=== PATIENT | male | born 1975 | race African-American/Black ===

== ENCOUNTER 2020-07-16 09:06 | Emergency (ER) | payer BC, SELFPAY ==
[2020-07-16 09:38] LABS: Absolute Lymphocytes (CBC) 1.7 K/uL (0.7-4.9); Basophils % 1.1 % (0-1.3); Hematocrit 35.3 % (39.6-49.0); MPV 6.8 fL (7.6-11.3); RBC Red Blood Cell Count 3.66 M/uL (4.33-5.43)
[2020-07-16 09:39] LABS: Protime INR 0.84
[2020-07-16 09:57] LABS: ALT/SGPT 27 U/L (12-78); AST/SGOT 15 U/L (15-37); Albumin 3.7 g/dL (3.4-5.0); Alkaline Phosphatase 79 U/L (45-117); BUN Blood Urea Nitrogen 11 mg/dL (7-18); Bicarbonate 27 mmol/L (21-32); Bilirubin Direct 0.2 mg/dL (0-0.2); Bilirubin Total 0.4 mg/dL (0.2-1.0); Glucose Level 209 mg/dL (74-106); Magnesium 2.2 mg/dL (1.8-2.4); NT PRO-BNP 38 pg/mL (<125); Protein, Total 8.2 g/dL (6.4-8.2); Sodium Level 141 mmol/L (136-145); Troponin (Emerg Dept Use Only) < 0.02 ng/mL (0.0-0.045)
--- NOTE | 2020-07-16 09:58 | RAD REPORT ---
EXAM DESCRIPTION: Kerri Single View07/16/2020 9:53 am CLINICAL HISTORY: Chest pain COMPARISON: 2017 FINDINGS: The lungs appear clear of acute infiltrate. The heart is normal size IMPRESSION: No acute abnormalities displayed
[2020-07-16] MEDS ORDERED: NA CHLORIDE 0.9% 1,000 ML ONE (10:23)
--- NOTE | 2020-07-16 13:23 | ER ---
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 Coronavirus screen: Client denies travel out of the [place] in the last 14 days. Ebola Screen: Patient negative for fever greater than or equal to 101.5 degrees Fahrenheit, and additional compatible Ebola Virus Disease symptoms Patient denies exposure to infectious person. Patient denies travel to an Ebola-affected area in the 21 days before illness onset. No symptoms or risks identified at this time. Initial Sepsis Screen: Does the patient meet any 2 criteria? HR > 90 bpm. No. Patient's initial sepsis screen is negative. Does the patient have a suspected source of infection? No. Patient's initial sepsis screen is negative. Risk Assessment: Do you want to hurt yourself or someone else? Patient reports no desire to harm self or others. Onset of symptoms was July 16, 2020 at 08:00. 09:04 Method Of Arrival: EMS: [facility] em 09:04 Acuity: LAMINE 2 em Historical: - Allergies: 09:04 No Known Allergies; em - PMHx: 09:04 Diabetes - NIDDM; Hypertension; em - PSHx: 09:04 None; em - Immunization history:: Adult Immunizations up to date. - Social history:: Smoking status: Patient reports the use of cigarette tobacco products, cigars. Screenin:04 Abuse screen: Denies threats or abuse. Nutritional screening: No deficits noted. em Tuberculosis screening: No symptoms or risk factors identified. Fall Risk None identified. Assessment: 09:04 General: Appears in no apparent distress. comfortable, Behavior is calm, cooperative, em appropriate for age. Pain: Denies pain. Complains of pain in anterior aspect of right upper chest Pain does not radiate. Pain began 0800. Neuro: Level of Consciousness is awake, alert, obeys commands, Oriented to person, place, time, situation, Appropriate for age. Cardiovascular: Capillary refill < 3 seconds Patient's skin is warm and dry. Rhythm is sinus rhythm. Respiratory: Airway is patent Respiratory effort is even, unlabored, Respiratory pattern is regular, symmetrical. GI: Patient currently denies nausea, vomiting. Derm: Skin is intact, is healthy with good turgor, Skin is pink, warm \T\ dry. Musculoskeletal: Capillary refill < 3 seconds, Range of motion: intact in all extremities. 10:15 Reassessment: Patient appears in no apparent distress at this time. Patient and/or em family updated on plan of care and expected duration. Pain level reassessed. Patient is alert, oriented x 3, equal unlabored respirations, skin warm/dry/pink. 10:58 Reassessment: Patient appears in no apparent distress at this time. Patient and/or em family updated on plan of care and expected duration. Pain level reassessed. will repeat trop. at 1230. 12:30 Reassessment: Patient appears in no apparent distress at this time. Patient and/or vg1 family updated on plan of care and expected duration. Pain level reassessed. Patient is alert, oriented x 3, equal unlabored respirations, skin warm/dry/pink. sent repeat trop. 13:38 Reassessment: Patient appears in no apparent distress at this time. Patient and/or em family updated on plan of care and expected duration. Pain level reassessed. Patient is alert, oriented x 3, equal unlabored respirations, skin warm/dry/pink. Vital Signs: 09:04 BP 164 / 93; Pulse 102; Resp 20; Temp 98.6(O); Pulse Ox 100% on R/A; Weight 83.91 kg; em Height 5 ft. 5 in. (165.10 cm); Pain 0/10; 10:22 BP 154 / 91; Pulse 91; Resp 18; Pulse Ox 100% on R/A; Pain 0/10; em 11:43 BP 156 / 90; Pulse 99; Resp 16; Pulse Ox 100% on R/A; vg1 12:30 BP 140 / 75; Pulse 91; Resp 18; Pulse Ox 100% on R/A; vg1 13:38 BP 138 / 71; Pulse 96; Resp 18; Pulse Ox 99% on R/A; em 09:04 Body Mass Index 30.79 (83.91 kg, 165.10 cm) em ED Course: 09:04 Arm band placed on. em 09:04 Patient has correct armband on for positive identification. park naturalist on. Pulse em ox on. NIBP on. 09:04 Patient maintains SpO2 saturation greater than 95% on room air. em 09:13 Patient arrived in ED. ss 09:13 Rodrigo Mcguire, RN is Primary Nurse. em 09:15 Latrell Miguel NP is PHCP. pm1 09:15 Mark Gomez MD is Attending Physician. pm1 09:17 Triage completed. em 09:27 Initial lab(s) drawn, by me, sent to lab. EKG done, by ED staff, reviewed by Mark Gomez MD. 09:27 Inserted saline lock: 22 gauge in left antecubital area, using aseptic technique. Blood em collected. 09:53 XRAY Chest (1 view) In Process Unspecified. EDMS 13:38 No provider procedures requiring assistance completed. IV discontinued, intact, em bleeding controlled, No redness/swelling at site. Pressure dressing applied. Administered Medications: 10:13 Drug: NS 0.9% 1000 ml Route: IV; Rate: 1000 ml; Site: left antecubital; em 11:30 Follow up: IV Status: Completed infusion; IV Intake: 1000ml em Intake: 11:30 IV: 1000ml; Total: 1000ml. em Outcome: 13:22 Discharge ordered by MD. pm1 13:38 Discharged to home ambulatory. em 13:38 Condition: stable 13:38 Discharge instructions given to patient, Instructed on discharge instructions, follow up and referral plans. medication usage, Demonstrated understanding of instructions, follow-up care, medications, Prescriptions given X 2. 13:40 Patient left the ED. em Signatures: Dispatcher [employer] EDAK Rodrigo Mcguire, LES SALDANA em Christine Sims RN RN ss Marinas, Patrick, NP MEDICAL AUDITOR pm1 Virgie Eldridge RN RN vg1
--- NOTE | 2020-07-16 13:23 | EDPHYS ---
Physician Documentation [facility] Name: Leno Vernon II Age: 44 yrs Sex: Male : 1975 Arrival Date: 07/16/2020 Time: 09:13 Bed 3 Private MD: ED Physician Mark Gomez HPI: 07/16 09:50 This 44 yrs old Black Male presents to ER via EMS with complaints of Chest Pain. pm1 09:50 The patient or guardian reports chest pain that is located primarily in the anterior pm1 aspect of right upper chest. Onset: this morning, at 08:00. The pain does not radiate. Associated signs and symptoms: Pertinent positives: nausea. The chest pain is described as sharp. Duration: The patient or guardian reports multiple episodes, That last a few seconds. Modifying factors: The symptoms are alleviated by nothing. the symptoms are aggravated by nothing. Severity of pain: At its worst the pain was a 8 / 10 in the emergency department the pain has resolved is a 0 / 10. EMS care prior to arrival includes: aspirin. The patient has experienced a previous episode, many years ago. Historical: - Allergies: 09:04 No Known Allergies; em - PMHx: 09:04 Diabetes - NIDDM; Hypertension; em - PSHx: 09:04 None; em - Immunization history:: Adult Immunizations up to date. - Social history:: Smoking status: Patient reports the use of cigarette tobacco products, cigars. ROS: 09:50 Constitutional: Negative for fever, chills, and weight loss, Eyes: Negative for injury, pm1 pain, redness, and discharge, ENT: Negative for injury, pain, and discharge, Neck: Negative for injury, pain, and swelling. 09:50 Respiratory: Negative for shortness of breath, cough, wheezing, and pleuritic chest pain. 09:50 Back: Negative for injury and pain, MS/Extremity: Negative for injury and deformity, Skin: Negative for injury, rash, and discoloration, Neuro: Negative for headache, weakness, numbness, tingling, and seizure. 09:50 Cardiovascular: Positive for chest pain, Negative for edema, orthopnea, palpitations. 09:50 Abdomen/GI: Positive for nausea, Negative for abdominal pain, vomiting, diarrhea, constipation. Exam: 09:50 Constitutional: This is a well developed, well nourished patient who is awake, alert, pm1 and in no acute distress. Head/Face: Normocephalic, atraumatic. 09:50 Cardiovascular: Regular rate and rhythm with a normal S1 and S2. No gallops, murmurs, or rubs. Normal PMI, no JVD. No pulse deficits. Respiratory: Lungs have equal breath sounds bilaterally, clear to auscultation and percussion. No rales, rhonchi or wheezes noted. No increased work of breathing, no retractions or nasal flaring. 09:50 Back: No spinal tenderness. No costovertebral tenderness. Full range of motion. Skin: Warm, dry with normal turgor. Normal color with no rashes, no lesions, and no evidence of cellulitis. MS/ Extremity: Pulses equal, no cyanosis. Neurovascular intact. Full, normal range of motion. 09:50 Chest/axilla: Inspection: normal, Palpation: tenderness, of the anterior aspect of right upper chest, that totally reproduces the patient's complaints. 09:50 Abdomen/GI: Exam negative for acute changes, Inspection: abdomen appears normal, Palpation: abdomen is soft and non-tender, in all quadrants. 09:50 Neuro: Exam negative for acute changes, Orientation: is normal, Mentation: is normal, Motor: is normal, moves all fours. Vital Signs: 09:04 BP 164 / 93; Pulse 102; Resp 20; Temp 98.6(O); Pulse Ox 100% on R/A; Weight 83.91 kg; em Height 5 ft. 5 in. (165.10 cm); Pain 0/10; 10:22 BP 154 / 91; Pulse 91; Resp 18; Pulse Ox 100% on R/A; Pain 0/10; em 11:43 BP 156 / 90; Pulse 99; Resp 16; Pulse Ox 100% on R/A; vg1 12:30 BP 140 / 75; Pulse 91; Resp 18; Pulse Ox 100% on R/A; vg1 13:38 BP 138 / 71; Pulse 96; Resp 18; Pulse Ox 99% on R/A; em 09:04 Body Mass Index 30.79 (83.91 kg, 165.10 cm) em MDM: 09:15 Patient medically screened. pm1 09:56 Data reviewed: vital signs. Data interpreted: Pulse oximetry: on room air is 100 %. pm1 Interpretation: normal. 13:21 Counseling: I had a detailed discussion with the patient and/or guardian regarding: the pm1 historical points, exam findings, and any diagnostic results supporting the discharge/admit diagnosis, lab results, radiology results, the need for outpatient follow up, to return to the emergency department if symptoms worsen or persist or if there are any questions or concerns that arise at home. 07/16 09:13 Order name: Basic Metabolic Panel; Complete Time: 10:06 ss 07/16 09:13 Order name: CBC with Diff; Complete Time: 09:44 ss 07/16 09:13 Order name: LFT's; Complete Time: 10:06 ss 07/16 09:13 Order name: Magnesium; Complete Time: 10:06 ss 07/16 09:13 Order name: NT PRO-BNP; Complete Time: 10:06 ss 07/16 09:13 Order name: PT-INR; Complete Time: 09:44 ss 07/16 09:13 Order name: Troponin (emerg Dept Use Only); Complete Time: 10:06 ss 07/16 09:13 Order name: XRAY Chest (1 view); Complete Time: 10:06 ss 07/16 09:13 Order name: EKG; Complete Time: 09:14 ss 07/16 09:13 Order name: Cardiac monitoring; Complete Time: 09:18 ss 07/16 09:13 Order name: EKG - Nurse/Tech; Complete Time: 09:18 ss 07/16 12:28 Order name: Troponin (emerg Dept Use Only) em 07/16 12:57 Order name: Troponin (Emerg Dept Use Only); Complete Time: 13:39 EDMS 07/16 09:13 Order name: IV Saline Lock; Complete Time: 09:32 ss 07/16 09:13 Order name: Labs collected and sent; Complete Time: 09:32 ss 07/16 09:13 Order name: O2 Per Protocol; Complete Time: 09:19 ss 07/16 09:13 Order name: O2 Sat Monitoring; Complete Time: 09:19 ss Administered Medications: 10:13 Drug: NS 0.9% 1000 ml Route: IV; Rate: 1000 ml; Site: left antecubital; em 11:30 Follow up: IV Status: Completed infusion; IV Intake: 1000ml em Disposition: 07/17 07:40 Co-signature as Attending Physician, Mark Gomez MD I agree with the assessment and kdr plan of care. Disposition: 07/16/20 13:22 Discharged to Home. Impression: Chest pain, unspecified. - Condition is Stable. - Discharge Instructions: Nonspecific Chest Pain. - Prescriptions for Cyclobenzaprine 10 mg Oral Tablet - take 1 tablet by ORAL route every 8 hours As needed; 30 tablet. Diclofenac Sodium 75 mg Oral Tablet, Delayed Release (E.C.) - take 1 tablet by ORAL route 2 times per day As needed; 30 tablet. - Medication Reconciliation Form, Thank You Letter, Antibiotic Education, Prescription Opioid Use form. - Follow up: Emergency Department; When: As needed; Reason: Worsening of condition. Follow up: Private Physician; When: 2 - 3 days; Reason: Recheck today's complaints, Continuance of care, Re-evaluation by your physician. - Problem is new. - Symptoms have improved. Signatures: Dispatcher [employer] EDGA Mark Gomez MD MD [facility] Rodrigo Mcguire RN RN Christine Sims RN RN ss Latrell Miguel NP VENDING ATTENDANT pm1 Corrections: (The following items were deleted from the chart) 07/16 13:40 13:22 07/16/2020 13:22 Discharged to Home. Impression: Chest pain, unspecified. em Condition is Stable. Forms are Medication Reconciliation Form, Thank You Letter, Antibiotic Education, Prescription Opioid Use. Follow up: Emergency Department; When: As needed; Reason: Worsening of condition. Follow up: Private Physician; When: 2 - 3 days; Reason: Recheck today's complaints, Continuance of care, Re-evaluation by your physician. Problem is new. Symptoms have improved. pm1
[2020-07-16 13:54] VITALS: BP 138/71; O2SAT 99
--- NOTE | 2020-07-17 16:11 | EKG ---
Test Date: 2020-07-16 Test Time: 09:10:59 Survey Rodman: JACKSON MEASUREMENT RESULTS: Intervals: Rate: 100 RI: 154 QRSD: 84 QT: 336 QTc: 433 [place]: P: 63 RI: 154 QRS: 36 T: 29 INTERPRETIVE STATEMENTS: Normal sinus rhythm Nonspecific T wave abnormality Abnormal ECG Compared to ECG 07/13/2017 10:08:09 Sinus tachycardia no longer present Left ventricular hypertrophy no longer present T-wave abnormality still present Electronically Signed On 07-17-20 16:08:26 CDT by Brannon Nuno
== END 2020-07-16 13:40 | disposition home or self-care (01) ==
LOC: ER 09:06
DX: R07.9 Chest pain, unspecified (principal); F17.210 Nicotine dependence, cigarettes, uncomplicated
CPT/HCPCS: 36415; 71045; 80048; 80076; 83735; 83880; 84484; 85025; 85610; 93005; 96360; 99285; J7030